=== PATIENT | male | born 1980 | race Two or more races ===

== ENCOUNTER 2017-11-23 22:06 | Emergency (ER) | payer SELFPAY ==
--- NOTE | 2017-11-23 23:54 | C.PDOC ---
History Of Present Illness 37 year old male presents to the ED c/o pain and swelling to his left medial knee for the past 3 days. Patient was seen yesterday at another ED department for the same complaints. Patient reports he has been taking Motrin 600 every 6 hours and using an icy spray. Patient denies new injury, fall, trauma, weakness , numbness. Time Seen by Provider: 11/23/17 23:00 Chief Complaint (Nursing): Lower Extremity Problem/Injury History Per: Patient History/Exam Limitations: no limitations Onset/Duration Of Symptoms: Days Current Symptoms Are (Timing): Still Present Recent travel outside of the [place]: No Additional History Per: Patient - Knee Description Of Injury: Other Alleviating Factor(s): Ice Therapy, OTC Pain Medication Past Medical History Reviewed: Historical Data, Nursing Documentation, Vital Signs Vital Signs: Last Vital Signs Temp 98.5 F 11/24/17 00:06 Pulse 56 L 11/24/17 00:06 Resp 16 11/24/17 00:06 BP 103/61 11/24/17 00:06 Pulse Ox 100 11/24/17 00:06 - Medical History PMH: No Chronic Diseases Surgical History: No Surg Hx Family History: States: Unknown Family Hx - Social History Hx Alcohol Use: No Hx Substance Use: No - Immunization History Hx Tetanus Toxoid Vaccination: No Hx Influenza Vaccination: No Hx Pneumococcal Vaccination: No Review Of Systems Constitutional: Negative for: Fever, Chills Cardiovascular: Negative for: Chest Pain Respiratory: Negative for: Shortness of Breath Gastrointestinal: Negative for: Nausea, Vomiting, Abdominal Pain Musculoskeletal: Positive for: Leg Pain Skin: Negative for: Rash Neurological: Negative for: Weakness, Numbness Physical Exam - Physical Exam Appears: Non-toxic, No Acute Distress Skin: Normal Color, Warm, Dry Head: Atraumatic, Normacephalic Eye(s): bilateral: Normal Inspection Oral Mucosa: Moist Neck: Normal ROM, Supple Chest: Symmetrical Cardiovascular: Rhythm Regular Respiratory: Normal Breath Sounds, No Rales, No Rhonchi, No Wheezing Gastrointestinal/Abdominal: Soft, No Tenderness, No Guarding, No Rebound Extremity: Normal ROM (painful left knee), Tenderness (left lower medial knee), Capillary Refill (< 2 seconds), Other (mild left medial knee effusion) Pulses: Left Dorsalis Pedis: Normal, Right Dorsalis Pedis: Normal Neurological/Psych: Oriented x3, Normal Speech Gait: Steady ED Course And Treatment O2 Sat by Pulse Oximetry: 99 (ON RA) Pulse Ox Interpretation: Normal - Other Rad L knee X-Ray: Interpreted by Me (no fx/disloc) Progress Note: ice pack Reevaluation Time: 23:53 Reassessment Condition: Improved Medical Decision Making Medical Decision Making: L lower medial knee contusion no fx/disloc. Disposition Doctor Will See Patient In The: Office Counseled Patient/Family Regarding: Studies Performed, Diagnosis - Disposition Referrals: [facility] [Outside] [facility] [Outside] [facility] [Outside] Brigette Villagran MD [Staff Provider] - Non [facility] Provider, [Primary Care Provider] - Disposition: HOME/ ROUTINE Disposition Time: 23:54 Condition: GOOD Additional Instructions: continue ice packs to knee 1/2 hour per hour, nothing hot motrin 600 mg every 6 hours as needed follow-up w Dr. Villagran- Orthopedics, as needed. Call to make an appointment crutch walking as needed. Instructions: Contusion (DC), Knee Sprain (DC) Forms: [employer] (Congolese) - Clinical Impression Clinical Impression: Contusion of knee, left - Scribe Statement The provider has reviewed the documentation as recorded by the Scribe Uche Bowens All medical record entries made by the Scribe were at my direction and personally dictated by me. I have reviewed the chart and agree that the record accurately reflects my personal performance of the history, physical exam, medical decision making, and the department course for this patient. I have also personally directed, reviewed, and agree with the discharge instructions and disposition.
[2017-11-24 00:07] VITALS: BP 103/61; PULSE 56; RESP 16; TEMP 98.5
[2017-11-24 00:30] VITALS: O2SAT 99
--- NOTE | 2017-11-24 10:20 | RAD ---
PROCEDURE: Left Knee Radiographs. HISTORY: Pain. COMPARISON: None. FINDINGS: BONES: Bone alignment and mineralization are normal. There is no acute displaced fracture or bone destruction. JOINTS: There is mild tricompartmental degenerative osteoarthrosis, worse in the medial compartment with reduced joint spaces, marginal osteophytes and tibial spiking. JOINT EFFUSION: There is a small joint effusion. OTHER FINDINGS: There is mild medial and suprapatellar swelling. IMPRESSION: No acute displaced fracture or dislocation.
== END 2017-11-24 00:29 | disposition home or self-care (01) ==
LOC: SUPCPDRO 22:06 → C.ER 22:06
DX: S80.02XD Contusion of left knee, subsequent encounter (principal); X58.XXXD Exposure to other specified factors, subsequent encounter